=== PATIENT | male | born 1980 | race African-American/Black ===

== ENCOUNTER 2021-03-05 12:41 | Emergency (ER) | payer OTHER, SELFPAY ==
[2021-03-05 12:58] VITALS: BP 143/84; PULSE 85; RESP 18; TEMP 36.6; O2SAT 100
--- NOTE | 2021-03-05 13:33 | ED.GENADULT ---
HPI - General Adult General Chief complaint: Extremity Injury, Upper Stated complaint: Rt hand swelling Source: patient and family Mode of arrival: ambulatory Limitations: no limitations History of Present Illness HPI narrative: Patient is a 40-year-old -Thai male who presents to [facility] via POV for evaluation of a skin problem located on right hand that began 3 days ago. He is accompanied by spouse. He reports right hand is painful, erythematous, and swollen. Prior to symptoms patient states he had a blister located on palm of right hand and popped the blister with a safety pin. He states his symptoms began shortly after using safety pin. Pain is throbbing in nature and constant. He reports his pain to be 20 out of 10 on the pain scale of 0-10. Pain is alleviated with elevation and worsens in the dependent position. Related Data Allergies Allergy/AdvReac Type Severity Reaction Status Date / Time No Known Allergies Allergy Verified 03/05/21 13:03 Review of Systems Review of Systems: Narrative: Denies fever, chills, sweats, malaise, poor p.o. intake, change in appetite, headache, LOC, dizziness, streaking, drainage, numbness, tingling, loss of sensation, foreign body sensation, deformity, sob, chest pain, and heart palpitations/murmurs. PMFSH Comments I have reviewed and agree with the patient's past medical, surgical, social, and family hx as documented by the RN. There is no relevant family history pertinent to the presenting complaint. Exam Narrative: Exam Narrative: GENERAL: Well-appearing, well-nourished, and in no acute distress. In obvious pain. NECK: Supple. No Lymphadenopathy or nuchal rigidity appreciated. CHEST: Bilateral lung mata are clear to auscultation. No respiratory distress. No evidence of cough or pleuritic cp upon examination. HEART: Regular rate and rhythm. No murmur, gallop, or rub heard. EXTREMITIES: Normal range of motion. No edema. SKIN: Warm, dry. Moderate cellulitis noted to right hand. No evidence of abscess, streaking, induration, abrasions/lacerations, petechiae, hematoma, contusion, drainage, or bleeding. NEURO: No focal deficits. Alert and oriented x3. SPECIAL OBSERVATIONS: Smiling. Course Vital Signs Vital signs: Vital Signs Temperature 97.9 F 03/05/21 12:58 Pulse Rate 85 07/14/21 12:58 Respiratory Rate 18 03/05/21 12:58 Blood Pressure 143/84 H 03/05/21 12:58 Pulse Oximetry 100 03/05/21 12:58 Temperature 97.9 F 03/05/21 12:58 Pulse Rate 85 03/05/21 12:58 Respiratory Rate 18 03/05/21 12:58 Blood Pressure 143/84 H 03/05/21 12:58 Pulse Oximetry 100 03/05/21 12:58 Reviewed. Due to an elevated blood pressure, I had a detailed discussion with the patient and/or guardian regarding the need for follow-up with their primary care provider within the next 3-4 days. Patient verbalized understanding and agreed. Medical Decision Making Differential Diagnosis Differential Diagnosis: Contact/allergic dermatitis, atopic dermatitis, psoriasis, cellulitis, tinea infection, parasite infection, shingles Medical Records Medical records reviewed: Yes I reviewed the external patient's medical records. Vital Signs Vital Signs: Vital Signs Temperature 97.9 F 03/05/21 12:58 Pulse Rate 85 03/05/21 12:58 Respiratory Rate 18 03/05/21 12:58 Blood Pressure 143/84 H 03/05/21 12:58 Pulse Oximetry 100 03/05/21 12:58 Temperature 97.9 F 03/05/21 12:58 Pulse Rate 85 03/05/21 12:58 Respiratory Rate 18 03/05/21 12:58 Blood Pressure 143/84 H 03/05/21 12:58 Pulse Oximetry 100 03/05/21 12:58 Reviewed. Due to an elevated blood pressure, I had a detailed discussion with the patient and/or guardian regarding the need for follow-up with their primary care provider within the next 3-4 days. Patient verbalized understanding and agreed. Critical Care Time Critical Care Time Critical Care Time: No Discharge Plan Discharge Clinical I
== END 2021-03-05 13:38 | disposition home or self-care (01) ==
PROVIDERS: Emergency Provider Nurse Practitioner Family
DX: L03.113 Cellulitis of right upper limb (principal); Z86.73 Personal history of transient ischemic attack (TIA), and cerebral infarction without residual deficits; I48.91 Unspecified atrial fibrillation; I10 Essential (primary) hypertension; I25.2 Old myocardial infarction; Z95.0 Presence of cardiac pacemaker
CPT/HCPCS: 99203; G0463